=== PATIENT | female | born 1965 | race Caucasian/White ===

== ENCOUNTER 2021-12-27 09:41 | Outpatient (CLI) | payer MEDICARE, BC ==
[~2021-12-27 09:41] MED LIST: BARIUM SULFATE 340 ML SUSP.RECON***PROCEDURE AREA ONLY**DONT ENTER PO ONE; diatrozoate meglu/diatrozoate sod (37% iodine) 120ML oral solution ONE
== END 2021-12-27 23:59 | disposition home or self-care (01) ==
LOC: RAD 09:41
PROVIDERS: ATTEND Surgery
DX: K21.9 Gastro-esophageal reflux disease without esophagitis (principal); K44.9 Diaphragmatic hernia without obstruction or gangrene; Z98.84 Bariatric surgery status
CPT/HCPCS: 74240; Q9963